=== PATIENT | female | born 1955 | race Asian ===

== ENCOUNTER → 2022-12-10 | Outpatient (CLI) | payer MEDICARE, OTHER ==
[~2022-12-10] MED LIST: B/P MED; CALCIUM 600MG+D1 TAB PO; CELEBREX 200MG200 MG PO; CHANTIX STARTER1 TAB PO; FOSAMAX 70MG TA70 MG PO; LIPITOR 40MG TA40 MG PO; MICARDIS80 MG PO; NEXIUM 40MG40 MG PO; NORCO 325 MG-51 TAB PO; REFLUX MED; TOPROL XL 50MG50 MG PO; VITAMINS; ZADITOR 5 ML5 ML OP
== END ==
LOC: COL.RAD 07:04
DX: Z76.89 Persons encountering health services in other specified circumstances (principal)
CPT/HCPCS: Q9967

== ENCOUNTER → 2024-01-07 | Outpatient (CLI) | payer MEDICARE, OTHER | LOC: COL.RAD 09:11 | DX: Z12.2 Encounter for screening for malignant neoplasm of respiratory organs (principal); Z87.891 Personal history of nicotine dependence ==